=== PATIENT | female | born 1945 | race Caucasian/White ===

== ENCOUNTER → 2016-08-12 | Outpatient (CLI) | payer OTHER ==
[~2016-08-12] MED LIST: ACULAR10 ML; ALLEGRA; ASPIRIN EC81 M1 PO; ATIVAN; ATORVASTATIN CA20 MG PO; BYSTOLIC5 MG PO; CALTRATE PLUS T1 TAB; CENTRUM SILVER; LIPITOR; LORAZEPAM1 MG PO; NORVASC PO; OMEGA 3 FISH OI1 CAP PO; PRED MILD5 ML OP; TARKA; VALSARTAN-HCTZ1 EAC2 PO; ZYMAR5 ML OP
--- NOTE | ~2016-08-12 | CT2 ---
[facility] A Service of [facility] RADIOLOGY TEXT RESULTS PATIENT: TREVIN BAUTISTA LOCATION: [facility] : 49 UNIT #: [id number] AGE: [address]: Rosalinda Nogueira MD SEX: F ORDER DR: [id number] [facility] [address]. [place], [place] [address] [id number] O MR#: [id number] Acc #: [id number] NAME: TREVIN BAUTISTA : 1945 SEX: F STUDY DATE/TIME: 08/12/2016 11:04 UNIT: [facility] ROOM: STUDY DESCRIPTION: CT Abd and Pelv W Cont Attending Physician: Rosalinda Nogueira M.D. Referring Physician: Rosalinda Nogueira M.D. Ordering Physician: Rosalinda Nogueira M.D. Primary Care Physician: Rosalinda Nogueira M.D. MEDICAL IMAGING REPORT This report is preliminary unless electronic signature is present EXAM CT of the abdomen and pelvis with contrast. INDICATION Abdominal pain, feeling like a contraction across the middle of her abdomen. This has present since December 2015 and has gotten worse today. TECHNIQUE Axial CT images were obtained from the dome of the diaphragm through the symphysis pubis following the administration of oral and intravenous contrast material. This CT exam was performed with one or more of the following radiation dose reduction techniques: automatic exposure control, adjustment of mA and/or kV according to patient size, and iterative reconstruction. FINDINGS Images through the lung bases are clear. There is a small hiatal hernia. Stomach and proximal small bowel are within normal limits, as are the adrenal glands and pancreas. Spleen is within normal limits as is the gallbladder. There is a low-attenuation lesion identified within the caudate lobe which has been unchanged since January of 2016. It is favored to be benign and may reflect a cyst. Patient has an inferior pole right renal cyst. Patient does appear to have some narrowing at the origin of the celiac axis. There is atherosclerotic involvement of the abdominal aorta. Urinary bladder is within normal limits as is the uterus, predominantly fat attenuation structure seen within the right adnexa is again noted. I think it is actually slightly smaller on today's exam at 2.2 x 1.8 cm, previously 2.9 x 2.2 cm in January 2016. It was also present in July of 2014 and again I do not think it has significantly changed. No free fluid or adenopathy is seen within the pelvis. Review of bony windows does not demonstrate any aggressive osseous abnormalities. [facility] A Service of [facility] RADIOLOGY TEXT RESULTS PATIENT: TREVIN BAUTISTA LOCATION: [facility] : 49 UNIT #: [id number] AGE: [address]: Rosalinda Nogueira MD SEX: F ORDER DR: IMPRESSION 1. No acute intraabdominal or intrapelvic process is seen to account for the patient's symptomatology. There is no evidence of mechanical bowel obstruction. The appendix is visualized and is within normal limits. 2. Predominantly fat attenuation structure is seen within the right hemipelvis, favored to be benign given basically stability since July of 2014. 3. Right renal cyst. 4. Small hiatal hernia. Please see the body of the report for any other additional incidental findings. Dictated by... Ching Stark M.D. THIS IS AN ELECTRONICALLY VERIFIED REPORT Ching Stark M.D. at 08/12/2016 4:49 PM AFF/sandovalw TD: 08/12/2016 14:55 JOB #: [id number] MEDICAL IMAGING REPORT Page 1 of 1 COPY
[2016-08-12 10:35] LABS: POC - CREATININE 0.75 mg/dL (0.44-1.03); POC - GFR >60.0 mL/min (>60)
== END | disposition home or self-care (01) ==
LOC: CCAT 09:45
PROVIDERS: Internal Medicine
DX: R10.9 Unspecified abdominal pain (principal); N28.1 Cyst of kidney, acquired; K44.9 Diaphragmatic hernia without obstruction or gangrene
CPT/HCPCS: 74177; 82565; Q9967